=== PATIENT | female | born 1950 ===

== ENCOUNTER 2017-07-31 14:37 | Outpatient (CLI) | payer OTHER ==
[~2017-07-31 14:37] MED LIST: ASPIRIN81 MG ORAL; CYMBALTA30 MG ORAL; CYMBALTA60 MG ORAL; NEXIUM2.5 MG ORAL; NEXIUM20 MG ORAL
[2017-07-31 15:19] VITALS: BP 127/74
--- NOTE | 2017-07-31 15:58 | GI Progress Note ---
Assessment/Plan Problems: (1) Abdominal pain of unknown etiology ICD Codes: R10.9 - Unspecified abdominal pain SNOMED: [id number] Status: stable Status Narrative Seen with Dr. Pete. Assessment/Plan CT AP pending RTC after imaging studies Subjective Subjective had Abdominal pain LLQ x 2 weeks ago. gone after use of abx had CT AP done, but results are still pending Objective Last 24 Hour Vital Signs Date Time Temp Pulse Resp B/P (MAP) Pulse Ox O2 Delivery O2 Flow Rate FiO2 07/31/17 15:19 98.4 81 16 127/74 95 98.4 General Appearance: WD/WN, no apparent distress, alert Cardiovascular: normal rate Respiratory/Chest: normal breath sounds, no respiratory distress Abdominal Exam: normal bowel sounds, non tender, soft Extremities: normal range of motion, non-tender Alessandra Mike N.P. Jul 31, 2017 15:58
== END 2017-07-31 15:10 | disposition home or self-care (01) ==
LOC: PAN 14:37
DX: R10.9 Unspecified abdominal pain (principal)
CPT/HCPCS: 99212